=== PATIENT | female | born 1970 | race Caucasian/White ===

== ENCOUNTER → 2020-11-17 | Outpatient (CLI) | payer OTHER ==
[~2020-11-17] MED LIST: IOHEXOL 300 MG/ML 75 ML VIAL. IV ONE
--- NOTE | 2020-11-17 12:28 | RAD ---
EXAMINATION: CT abdomen and pelvis with and without IV contrast. INDICATION:50 years, Female, right lower quadrant abdominal pain for 5 days. History of appendectomy. . TECHNIQUE: Axial CT images of the abdomen and pelvis were obtained. Coronal and sagittal reformatted performed. COMPARISON: None. Exposure: One or more of the following individualized dose reduction techniques were utilized for thi s examination: 1. Automated exposure control 2. Adjustment of the mA and/or kV according to patient size 3. Use of iterative reconstruction technique. FINDINGS: LOWER CHEST: Unremarkable ABDOMEN/PELVIS: Liver, gallbladder, biliary ducts, spleen, pancreas, adrenals and kidneys are normal. No bowel obstru ction or wall thickening. Normal caliber abdominal aorta. Mesenteric arteries and portal vein are pat ent. No pneumoperitoneum or ascites. No abdominopelvic lymphadenopathy by size criteria. Unremarkable urinary bladder. Anteverted uterus. Nabothian cysts present. Benign-appearing 3.[address] MUSCULOSKELETAL: No acute osseous process. IMPRESSION: 1. No acute abnormality. Uterus. 2. Benign-appearing 3.2 cm left adnexal cyst. Recommend ultrasound follow-up at 6-12 wk to ensure res olution. White Paper of the ACR Incidental Findings Committee II on Adnexal Findings (J Am Carlota Radiol 2013;10 :[id number]) Electronically signed by: Fadia Agosto MD (11/17/2020 12:26 PM) [id number]
== END ==
LOC: CT 10:52
PROVIDERS: ATTEND Family Medicine Sports Medicine
DX: N83.8 Other noninflammatory disorders of ovary, fallopian tube and broad ligament (principal); N88.8 Other specified noninflammatory disorders of cervix uteri
CPT/HCPCS: 74178; Q9967